=== PATIENT | female | born 1990 | race Caucasian/White ===

== ENCOUNTER 2024-05-27 05:42 | Inpatient (IN) | payer OTHER ==
[~2024-05-27] VITALS: Ht 165.1 cm; Wt 74.6 kg
[2024-05-27 06:24] LABS: BASOPHILS % 0.4 % (0.0-2.0); EOSINOPHILS % 0.2 % (0.0-5.0); HEMATOCRIT. 36.2 % (36.0-48.0); HEMOGLOBIN. 12.1 g/dL (12.0-16.0); LYMPHOCYTES % 17.7 % (20.0-50.0); MEAN CORPUSCULAR HEMOGLOBIN 29.9 pg (28.0-32.0); MEAN CORPUSCULAR HGB CONC 33.4 g/dL (31.0-37.0); MEAN CORPUSCULAR VOLUME 89.7 fL (81.0-99.0); MEAN PLATELET VOLUME 8.6 fl (7.4-10.4); MONOCYTES % 5.1 % (2.0-8.0); NEUTROPHILS % 76.6 % (40.0-76.0); PLATELET 317 x1000/uL (130-400); RED BLOOD CELL COUNT 4.03 mill/uL (4.2-5.4); RED CELL DISTRIBUTION WIDTH 13.9 % (11.6-14.6); WHITE BLOOD COUNT 14.5 x1000/uL (4.5-11.0)
[2024-05-27 06:40] LABS: CHLORIDE 107 mEq/L (98-107); POTASSIUM 3.4 mEq/L (3.5-5.1); SODIUM 137 mEq/L (136-145)
[2024-05-27 06:41] LABS: CALCIUM 9.1 mg/dL (8.7-10.4); CARBON DIOXIDE 17 mEq/L (21-32)
[2024-05-27 06:46] LABS: CREATININE 0.6 mg/dL (0.6-1.0); GLUCOSE 138 mg/dL (70-105); UREA NITROGEN BLOOD 8 mg/dL (9-23)
[2024-05-27 07:00] LABS: CLARITY URINE CLOUDY (CLEAR); COLOR URINE ORANGE (YELLOW); GLUCOSE URINE NEGATIVE (NEGATIVE); KETONES URINE 2+ (NEGATIVE); LEUKOCYTE ESTERASE URINE TRACE (NEGATIVE); NITRITE URINE NEGATIVE (NEGATIVE); OCCULT BLOOD URINE 3+ (NEGATIVE); PH URINE 5.5 (4.5-8.0); PROTEIN URINE 2+ (NEGATIVE)
[2024-05-27 07:01] LABS: B-HCG QUANTITATIVE 10160 mIU/mL (<3)
[2024-05-27 07:43] LABS: RBC URINE TNTC /hpf (0-2); SQUAMOUS EPITHELIAL CELL URINE 1+ /lpf (RARE/1+)
[2024-05-27] MEDS ORDERED: MORPHINE SULFATE 4 MG/ML INJ (FOR IV/IM USE) IV ONE (07:45)
[2024-05-27] MEDS ORDERED: MORPHINE SULFATE 4 MG/ML INJ (FOR IV/IM USE) IV STA (07:48)
[2024-05-27 07:52] LABS: BACTERIA URINE 2+; WBC URINE 0-2 /hpf (0-2)
[2024-05-27] MEDS: MORPHINE SULFATE 2 MG/ML INJ (NOT FOR IM USE) IV NR (08:17)
[2024-05-27] MEDS: SODIUM CHLORIDE 0.9% 1,000 ML IV ONE (08:17)
[2024-05-27 08:18] LABS: INR 1.1; PROTHROMBIN TIME 12.2 sec (9.6-11.0)
[2024-05-27 08:23] LABS: HEPATITIS B SURFACE ANTIGEN NEGATIVE (Negative)
[2024-05-27 08:43] LABS: HEPATITIS A AB IGM NEGATIVE (Negative)
[2024-05-27 08:44] LABS: HEPATITIS B CORE AB IGM NEGATIVE (Negative)
[2024-05-27 08:45] LABS: HEPATITIS C AB NON REACTIVE (Neg) (Negative)
[2024-05-27] MEDS: MORPHINE SULFATE 2 MG/ML INJ (NOT FOR IM USE) IV SCH (08:53)
[2024-05-27] MEDS: HYDROMORPHONE HCL/PF 1MG/ML INJ IV NR (11:27)
[2024-05-27] MEDS ORDERED: ROCURONIUM BROMIDE 10MG/ML VIAL 5ML IV ONE (11:44)
[2024-05-27] MEDS ORDERED: PROPOFOL 200MG/20ML VIAL IV ONE (11:44)
[2024-05-27] MEDS ORDERED: MIDAZOLAM HCL 2 MG/2 ML VIAL ONE (11:45)
[2024-05-27] MEDS ORDERED: FENTANYL CITRATE/PF 50MCG/ML 2ML VIAL ONE (11:45)
[2024-05-27 12:00] VITALS: BP 114/76; PULSE 81; RESP 19; TEMP 36.55848; O2SAT 100
[2024-05-27] MEDS ORDERED: HYDROMORPHONE HCL/PF 1MG/ML INJ ONE (12:01)
[2024-05-27] MEDS ORDERED: SILVER NITRATE APPLICATOR STICK TOP NR (12:45)
[2024-05-27] MEDS ORDERED: BUPIVACAINE HCL/PF 0.5% (5MG/ML) 10ML ONE (12:57)
[2024-05-27] MEDS ORDERED: GLYCOPYRROLATE 0.2 MG/ML 2ML VIAL ONE ×3 (13:00)
[2024-05-27] MEDS ORDERED: NEOSTIGMINE METHYLSULFATE 1MG/ML 10 ML VIAL ONE (13:00)
[2024-05-27 13:44] VITALS: BP 125/89; PULSE 70; RESP 16; TEMP 37.0852
[2024-05-27] MEDS ORDERED: ONDANSETRON HCL 4MG/2ML INJ IV PRN (13:45)
[2024-05-27] MEDS: HYDROMORPHONE HCL/PF 1MG/ML INJ IV PRN (14:21)
[2024-05-27 16:00] VITALS: BP 115/69; PULSE 94; RESP 19; TEMP 36.78072; O2SAT 98
[2024-05-27] MEDS: CEFAZOLIN 1000MG PREMIX 50 ML IV SCH (18:11)
[2024-05-27] MEDS ORDERED: NALOXONE HCL 0.4MG/ML VIAL IV PRN (19:00)
[2024-05-27] MEDS: HYDROMORPHONE HCL/PF 2MG/ML INJ IV PRN (19:21)
[2024-05-27 20:00] VITALS: BP 119/67; PULSE 91; RESP 18; TEMP 36.16956; O2SAT 100
[2024-05-27] MEDS ORDERED: HYDROMORPHONE HCL/PF 2MG/ML INJ IM PRN (20:00)
[2024-05-27] MEDS ORDERED: PNEUMOCOCCAL 20-VAL CONJ-DIP CRM 0.5ML IM ONE (21:15)
[2024-05-27] MEDS ORDERED: INFLUENZA VACCINE 05/PF 0.5 ML SYRINGE IM ONE (21:15)
[2024-05-28] VITALS: BP 125/69; PULSE 87; RESP 16; TEMP 36.33624; O2SAT 98
[2024-05-28 04:00] VITALS: BP 96/56; PULSE 99; RESP 17; TEMP 36.78072; O2SAT 99
[2024-05-28 07:28] LABS: CHLORIDE 107 mEq/L (98-107); POTASSIUM 3.3 mEq/L (3.5-5.1); SODIUM 137 mEq/L (136-145)
[2024-05-28 07:29] LABS: CALCIUM 8.3 mg/dL (8.7-10.4); CARBON DIOXIDE 20 mEq/L (21-32)
[2024-05-28 07:34] LABS: CREATININE 0.6 mg/dL (0.6-1.0); GLUCOSE 103 mg/dL (70-105); UREA NITROGEN BLOOD 6 mg/dL (9-23)
[2024-05-28 07:54] LABS: BASOPHILS % 0.1 % (0.0-2.0); HEMATOCRIT. 23.8 % (36.0-48.0); HEMOGLOBIN. 7.9 g/dL (12.0-16.0); MEAN CORPUSCULAR VOLUME 90.7 fL (81.0-99.0); MONOCYTES % 7.9 % (2.0-8.0); PLATELET 268 x1000/uL (130-400); RED BLOOD CELL COUNT 2.62 mill/uL (4.2-5.4); RED CELL DISTRIBUTION WIDTH 14.1 % (11.6-14.6); WHITE BLOOD COUNT 11.4 x1000/uL (4.5-11.0)
[2024-05-28 08:00] VITALS: BP 101/63; PULSE 84; RESP 17; TEMP 36.61404; O2SAT 97
[2024-05-28 12:00] VITALS: BP 95/57; PULSE 90; RESP 18; TEMP 36.50292; O2SAT 100
[2024-05-28] MEDS: IBUPROFEN 800MG TABLET PO PRN (17:40)
[2024-05-28 20:00] VITALS: BP 103/64; PULSE 102; RESP 19; TEMP 37.89192; O2SAT 100
[2024-05-29] VITALS: BP 102/51; PULSE 102; RESP 19; TEMP 38.39196; O2SAT 98
[2024-05-29 04:00] VITALS: BP 98/56; PULSE 88; RESP 19; TEMP 37.503; O2SAT 100
[2024-05-29 08:00] VITALS: BP 89/49; PULSE 90; RESP 20; TEMP 36.50292; O2SAT 100
[2024-05-29 13:38] VITALS: RESP 20
[2024-05-29 13:54] VITALS: BP 112/66; PULSE 72; TEMP 98.3; O2SAT 98
== END 2024-05-29 16:17 | disposition home or self-care (01) | DRG 547 ==
LOC: ER 06:00 → 6EST 07:50
PROVIDERS: ADMIT Obstetrics & Gynecology; ATTEND Obstetrics & Gynecology
PROC: 0UB60ZZ Excision of Left Fallopian Tube, Open Approach (ICD-10-PCS; principal; 2024-05-27)
PROC: 10D20ZZ Extraction of Products of Conception, Ectopic, Open Approach (ICD-10-PCS; 2024-05-27)
DX: O00.102 Left tubal pregnancy without intrauterine pregnancy (principal); K66.1 Hemoperitoneum; E66.9 Obesity, unspecified; N83.202 Unspecified ovarian cyst, left side; Z82.49 Family history of ischemic heart disease and other diseases of the circulatory system; Z87.59 Personal history of other complications of pregnancy, childbirth and the puerperium; Z3A.01 Less than 8 weeks gestation of pregnancy; O09.40 Supervision of pregnancy with grand multiparity, unspecified trimester
CPT/HCPCS: 36415; 76801; 80048; 81003; 84702; 85025; 86705; 86709; 86850; 86870; 86900; 86920; 87340; 88305; 99285; J0690; J1170; J2250; J2270; J2704; J2710; J3010; J3490; J7030; J7120

== ENCOUNTER 2024-06-24 11:54 | Emergency (ER) | payer MEDICAID ==
[~2024-06-24] VITALS: Ht 162.6 cm; Wt 85.0 kg
[2024-06-24 12:08] VITALS: O2SAT 98
[2024-06-24 12:49] LABS: BASOPHILS % 0.9 % (0.0-2.0); EOSINOPHILS % 1.6 % (0.0-5.0); HEMOGLOBIN. 11.9 g/dL (12.0-16.0); LYMPHOCYTES % 38.5 % (20.0-50.0); MEAN CORPUSCULAR HEMOGLOBIN 29.6 pg (28.0-32.0); MEAN CORPUSCULAR HGB CONC 32.1 g/dL (31.0-37.0); MEAN CORPUSCULAR VOLUME 92.3 fL (81.0-99.0); MEAN PLATELET VOLUME 8.5 fl (7.4-10.4); MONOCYTES % 7.5 % (2.0-8.0); NEUTROPHILS % 51.5 % (40.0-76.0); PLATELET 329 x1000/uL (130-400); RED BLOOD CELL COUNT 4.01 mill/uL (4.2-5.4); RED CELL DISTRIBUTION WIDTH 13.9 % (11.6-14.6); WHITE BLOOD COUNT 6.9 x1000/uL (4.5-11.0)
[2024-06-24 12:52] LABS: CHLORIDE 109 mEq/L (98-107); POTASSIUM 4.2 mEq/L (3.5-5.1); SODIUM 139 mEq/L (136-145)
[2024-06-24 12:53] LABS: CARBON DIOXIDE 24 mEq/L (21-32)
[2024-06-24 12:54] LABS: CALCIUM 9.8 mg/dL (8.7-10.4)
[2024-06-24 12:58] LABS: CREATININE 0.6 mg/dL (0.6-1.0); GLUCOSE 86 mg/dL (70-105)
[2024-06-24 12:59] LABS: UREA NITROGEN BLOOD 8 mg/dL (9-23)
[2024-06-24 13:01] LABS: ALANINE AMINOTRANSFERASE 25 IU/L (10-49); ALBUMIN 4.8 g/dL (3.2-4.8); ASPARTATE AMINOTRANSFERASE 25 IU/L (<34); BILIRUBIN DIRECT 0.1 mg/dL (<=3.0); BILIRUBIN TOTAL 0.4 mg/dL (0.1-1.0); PROTEIN TOTAL 7.5 g/dL (6.0-8.3)
[2024-06-24 13:39] LABS: HCG SCREEN NEGATIVE
[2024-06-24 16:47] VITALS: BP 122/70; PULSE 84; RESP 18; TEMP 36.83628; O2SAT 98
[2024-06-24] MEDS ORDERED: IOHEXOL-300 100 ML BOTTLE ONE (23:22)
== END 2024-06-24 16:47 | disposition home or self-care (01) ==
LOC: ER 11:54
DX: R14.0 Abdominal distension (gaseous) (principal); Z98.890 Other specified postprocedural states
CPT/HCPCS: 99285; 74177; 86870; 80076; 80048; 84703; 85025; 86850; 86900; 86901; 36415; Q9967

== ENCOUNTER 2025-04-28 17:00 | Emergency (ER) | payer MEDICAID ==
[~2025-04-28] VITALS: Ht 170.2 cm; Wt 70.0 kg
[2025-04-28 17:01] VITALS: O2SAT 100
[2025-04-28 17:36] LABS: BASOPHILS % 0.5 % (0.0-2.0); EOSINOPHILS % 0.6 % (0.0-5.0); HEMATOCRIT. 36.4 % (36.0-48.0); HEMOGLOBIN. 12.5 g/dL (12.0-16.0); LYMPHOCYTES % 22.6 % (20.0-50.0); MEAN PLATELET VOLUME 7.7 fl (7.4-10.4); MONOCYTES % 4.6 % (2.0-8.0); NEUTROPHILS % 71.7 % (40.0-76.0); PLATELET 289 x1000/uL (130-400); RED BLOOD CELL COUNT 3.94 mill/uL (4.2-5.4); RED CELL DISTRIBUTION WIDTH 13.5 % (11.6-14.6)
[2025-04-28 17:48] LABS: CREATININE 0.7 mg/dL (0.6-1.0)
[2025-04-28 17:49] LABS: UREA NITROGEN BLOOD 10 mg/dL (9-23)
[2025-04-28 17:50] LABS: ASPARTATE AMINOTRANSFERASE 169 IU/L (<34)
[2025-04-28 17:51] LABS: BILIRUBIN DIRECT 0.2 mg/dL (<=3.0); BILIRUBIN TOTAL 0.6 mg/dL (0.1-1.0); PROTEIN TOTAL 7.0 g/dL (6.0-8.3)
[2025-04-28 17:57] LABS: HCG SCREEN NEGATIVE
[2025-04-28] MEDS: FAMOTIDINE 20MG TABLET PO ONE (18:03)
[2025-04-28] MEDS: ACETAMINOPHEN 325MG TABLET PO ONE (18:03)
[2025-04-28] MEDS: MAGNESIUM/ALUMINUM HYDROXIDE/SIMETHICONE 30ML UDC PO ONE (18:03)
[2025-04-28] MEDS: KETOROLAC 15MG/ML VIAL IM ONE (18:04)
[2025-04-28] MEDS: ONDANSETRON 4MG ODT PO ONE (18:04)
[2025-04-28] MEDS ORDERED: ONDA-239 PO (19:04)
[2025-04-28 19:23] VITALS: BP 138/88; PULSE 80; RESP 16; TEMP 36.6; O2SAT 100
== END 2025-04-28 19:24 | disposition home or self-care (01) ==
LOC: ER 17:00
DX: K83.8 Other specified diseases of biliary tract (principal)
CPT/HCPCS: 99285; 74176; 80076; 80048; 84703; 83690; 85025; 36415; 96372; J1885; Q0162